=== PATIENT | female | born 1990 | race Caucasian/White ===

== ENCOUNTER → 2018-02-20 16:30 | Outpatient (CLI) | payer BC, SELFPAY ==
[2018-02-25 10:06] LABS: HPV Reflexed? NOT INDICATED
== END ==
PROVIDERS: Visit Provider Obstetrics & Gynecology
DX: Z12.4 Encounter for screening for malignant neoplasm of cervix (principal); Z12.72 Encounter for screening for malignant neoplasm of vagina
CPT/HCPCS: 88175; G0145

== ENCOUNTER → 2018-08-16 19:12 | Outpatient (CLI) | payer BC, SELFPAY ==
[2018-08-16 21:47] LABS: Chlamydia Trachomatis by PCR Negative (Negative); Neisserai gonorrhoeae by PCR Negative (Negative); Probe Check PASS; Sample Adequacy Control PASS; Specimen Processing Control PASS
== END ==
PROVIDERS: Referring Provider Obstetrics & Gynecology; Visit Provider Obstetrics & Gynecology
DX: Z11.3 Encounter for screening for infections with a predominantly sexual mode of transmission (principal)
CPT/HCPCS: 87491; 87591

== ENCOUNTER → 2020-09-13 | Outpatient (CLI) | payer BC, SELFPAY ==
[2019-11-05 15:31] VITALS: BMI 29.1
[2020-09-16 18:26] LABS: HPV Reflexed? NOT INDICATED
[2020-09-16 20:07] LABS: Chlamydia By Nucleic Acid AMP Negative (Negative)
[2020-09-16 22:43] LABS: Gonococcus By Nucleic Acid AMP Negative (Negative)
== END | disposition home or self-care (01) ==
PROVIDERS: PCP Family Medicine; Visit Provider Obstetrics & Gynecology
DX: Z12.4 Encounter for screening for malignant neoplasm of cervix (principal)
CPT/HCPCS: 87491; 87591; 88175; G0145

== ENCOUNTER → 2023-01-01 | Outpatient (CLI) | payer BC, SELFPAY ==
[2023-01-01 10:11] LABS: Absolute Lymphocyte Count 0.75 X10^3/uL (0.83-4.51); Absolute Neutrophil Count 5.4 X10^3/uL (2.0-7.7); Basophil# 0.03 X10^3/uL; Basophil% 0.5 % (0-1); Eosinophils% 1.5 % (0-5); Hematocrit 44.9 % (37-47); Hemoglobin 14.8 g/dL (12.0-15.0); Lymphocyte # 0.75 X10^3/ul (0.83-4.51); Lymphocyte % 11.6 % (19-41); Mean Platelet Vol. 10.7 fl (6.2-12.0); Monocyte# 0.16 X10^3/uL; Monocyte% 2.5 % (0-10); NRBC Flagged by Analyzer 0 % (0-5); Neutrophil # 5.42 X10^3/uL (2.7-7.7); Neutrophil % 83.6 % (47-70); Platelet Count 186 K/mm3 (150-450); RBC Distribution Width CV 11.7 % (11.6-14.6); RBC Distribution Width SD 37.7 fl (35.1-43.9); White Blood Count 6.5 K/mm3 (4.4-11.0)
[2023-01-01 11:26] LABS: ALB/GLOB Ratio 1.2 RATIO (0.9-2.4); AST(SGOT) 17 U/L (15-37); Alanine Aminotransfer ALT/SGPT 21 U/L (13-56); Albumin, Serum 4.1 g/dL (3.2-5.0); Alkaline Phosphatase 81 U/L (45-117); Anion Gap 6 (5-15); BUN 22 mg/dL (7-18); BUN/Creat Ratio 29.5 RATIO (10-20); Chloride 110 mmol/L (98-107); Creatinine, Serum 0.75 mg/dL (0.55-1.02); EST Glomerular Filtration Rate 94 mL/min (>60); Est Glom Filt Rate - Afr Amer 114 mL/min (>60); Globulin 3.5 g/dL (2.2-4.2); Glucose 97 mg/dL (74-106); Magnesium 2.1 mg/dL (1.6-2.6); Potassium 3.9 mmol/L (3.5-5.1); Protein, Total 7.6 g/dL (6.4-8.2); Sodium Level 139 mmol/L (136-145); Thyroid Stim Hormone (TSH) 0.91 uIU/mL (0.358-3.74)
== END | disposition home or self-care (01) ==
PROVIDERS: PCP Family Medicine; Referring Provider Physician Assistant Medical; Visit Provider Physician Assistant Medical
DX: R00.2 Palpitations (principal)
CPT/HCPCS: 36415; 80053; 83735; 84443; 85025

== ENCOUNTER → 2023-01-23 | Outpatient (CLI) | payer BC, SELFPAY ==
--- NOTE | 2023-01-23 12:46 | ECHOD_ITS ---
Reason For Study: ARRHYTHMIA Procedure This was a 2D Doppler, Color Flow transthoracic echocardiogram. Exam performed in department. Left Ventricle Normal LV size. Left ventricular systolic function is normal. The estimated ejection fraction is 60 %. No regional wall motion abnormalities noted. Right Ventricle Normal RV size. Normal systolic function. Atria Normal left atrium. Normal right atrium. Mitral Valve Normal mitral valve. Tricuspid Valve Normal tricuspid valve. Mild (1+) tricuspid valve insufficiency. Pulmonary artery systolic pressure is 25 mmHg. Aortic Valve Trisinus/trileaflet aortic valve. Pulmonic Valve Normal pulmonic valve. Great Vessels Normal aortic root. The pulmonary artery is normal size. Normal inferior vena cava. Pericardium/Pleural No pericardial effusion. MMode/2D Measurements & Calculations LVIDd: 4.2 cm IVSd: 0.68 cm Ao root diam: 2.9 cm LVIDs: 2.7 cm LVPWd: 0.75 cm RVDd: 3.1 cm FS: 37.0 % LAV(MOD-bp): 32.5 ml LVAd ap4: 26.0 cm2 LVAd ap2: 19.2 cm2 LAV(MOD-bp) Indexed: 19.2 ml/m2 LVLd ap4: 7.5 cm LVLd ap2: 6.9 cm LAV(MOD-sp2): 31.6 ml EDV(MOD-sp4): 76.3 ml EDV(MOD-sp2): 47.0 ml LAV(MOD-sp4): 31.6 ml EDV(sp4-el): 76.1 ml EDV(sp2-el): 45.3 ml LVAs ap4: 14.4 cm2 LVAs ap2: 10.2 cm2 LVLs ap4: 6.4 cm LVLs ap2: 5.7 cm ESV(MOD-sp4): 29.8 ml ESV(MOD-sp2): 17.1 ml ESV(sp4-el): 27.8 ml ESV(sp2-el): 15.5 ml EF(MOD-sp4): 61.0 % EF(MOD-sp2): 63.6 % EF(sp4-el): 63.4 % SV(MOD-sp4): 46.5 ml SV(MOD-sp2): 29.8 ml SV(sp4-el): 48.3 ml LA dimension(2D): 3.3 cm LA A4 area: 13.3 cm2 RA A4 area: 10.9 cm2 Time Measurements MV dec time: 0.19 sec Doppler Measurements & Calculations MV E max indio: 77.0 cm/sec Lat Peak E' [place]: 17.7 cm/sec Med Peak E' [place]: 15.5 cm/sec MV A max indio: 49.4 cm/sec E/E' lat: 4.4 E/E' med: 5.0 MV E/A: 1.6 MV dec slope: 436.7 cm/sec2 Ao V2 max: 132.3 cm/sec LV V1 max: 120.3 cm/sec Ao max P.0 mmHg LV V1 max P.8 mmHg Ao V2 mean: 89.8 cm/sec LV V1 mean P.8 mmHg Ao mean P.8 mmHg LV V1 mean: 77.4 cm/sec Ao V2 VTI: 26.8 cm LV V1 VTI: 22.1 cm AV (velocity ratio): 0.83 PA V2 max: 109.4 cm/sec TR max indio: 238.5 cm/sec TR max P.7 mmHg ECHO/Echo Complete Interpretation Summary Normal LV size. Left ventricular systolic function is normal. The estimated ejection fraction is 60 %. Mild (1+) tricuspid valve insufficiency. Ordering Physician: Airam Shore Referring Physician: Jarod Arvizu Performed By: Paz Holcomb RDCS, RVT
== END | disposition home or self-care (01) ==
LOC: CVS 12:45
PROVIDERS: PCP Family Medicine; Referring Provider Physician Assistant Medical; Visit Provider Physician Assistant Medical
DX: R00.2 Palpitations (principal)
CPT/HCPCS: 93306